=== PATIENT | male | born 1950 | race Caucasian/White ===

== ENCOUNTER → 2017-07-28 | Outpatient (CLI) | payer MEDICARE ==
--- NOTE | 2017-07-28 15:03 | CT ---
EXAMINATION TYPE: CT chest wo con DATE OF EXAM: 07/28/2017 COMPARISON: 04/18/2017, 11/13/2015 HISTORY: aortic aneurysm CT DLP: 680.7 mGycm. Automated Exposure Control for Dose Reduction was Utilized. TECHNIQUE: CT scan of the thorax is performed without IV contrast. FINDINGS: LUNGS: There is a stable appearing 9 mm pleural-based nodule right upper lobe. Retrospectively also measured 9 mm on the previous exam. There is a stable 4 mm nodule anterior segment right upper lobe. There is a stable appearing 3 mm nodule left upper lobe lingular segment . 3 mm posterior segment left lower lobe nodule not definitively seen on the previous exam. 2 mm nodule right lower lobe is stable. No pneumothorax or consolidative pneumonia or pleural effusion. Interlobular septal thickening noted suggestive of minimal interstitial chronic lung disease. MEDIASTINUM: Lack of IV contrast is noted to limit evaluation for mediastinal and especially for wilton r adenopathy. There are no definitive greater than 1 cm hilar or mediastinal lymph nodes. Ascsending aorta measures 4.7 cm and is stable. Pulmonary artery measures 3.5 cm. Trace amount of fluid in the pericardium again noted. Mild cardiomegaly noted and there is extensive coronary artery calcification. Atherosclerotic change involving the origin of the great vessels. OTHER: Previous cholecystectomy changes are noted. Vascular calcification seen. Stable appearing acc essory spleen anterior to the spleen. Hypertrophic and degenerative change of the spine. There is a s mall hiatal hernia. IMPRESSION: 1. Stable bilateral pulmonary nodules unchanged from the previous exam. Largest nodule seen within th e right upper lobe is retrospectively stable dating back to 11/13/2015. 2. Stable mild aneurysmal dilation of the ascending aorta measuring a maximal dimension of 4.7 cm on today's exam. 3. Extensive coronary artery calcification small hiatal hernia 4. Trace amount pericardial fluid.
== END | disposition home or self-care (01) ==
LOC: RADCTMAIN 13:52
PROVIDERS: ATTEND Internal Medicine
DX: I71.2 Thoracic aortic aneurysm, without rupture (principal); I31.3 Pericardial effusion (noninflammatory); R91.8 Other nonspecific abnormal finding of lung field; I25.10 Atherosclerotic heart disease of native coronary artery without angina pectoris; N18.3 Chronic kidney disease, stage 3 (moderate)
CPT/HCPCS: 71250

== ENCOUNTER 2017-07-30 07:19 | Emergency (ER) | payer MEDICARE ==
[2017-07-30] MEDS ORDERED: SODIUM CHLORIDE 0.9% 1,000 ML IV STA (07:44)
--- NOTE | 2017-07-30 08:04 | XR ---
EXAMINATION TYPE: XR chest 2V DATE OF EXAM: 07/30/2017 COMPARISON: CT 07/28/2017 HISTORY: 67-year-old male with chest pain TECHNIQUE: PA and lateral views FINDINGS: Heart upper limits of normal in size. Aorta and pulmonary vasculature within normal limits. Interstit ial prominence and mild peribronchial cuffing. Strandy atelectasis in the lower lungs. No consolidati on or pleural effusion. IMPRESSION: 1. Borderline heart size. 2. Interstitial prominence appears slightly increased relative to the patient's recent CT, possible b ronchitis, asthma, or atypical pneumonias 3. No focal infiltrate.
[2017-07-30 08:06] LABS: Basophils # (A) 0.1 k/uL (0-0.2); Basophils % (A) 1 %; Eosinophils # (A) 0.5 k/uL (0-0.7); Eosinophils % (A) 6 %; HCT 44.6 % (39.0-53.0); HGB 15.1 gm/dL (13.0-17.5); Lymphocytes # (A) 1.3 k/uL (1.0-4.8); Lymphocytes % (A) 17 %; MCH 29.9 pg (25.0-35.0); MCHC 33.8 g/dL (31.0-37.0); MCV 88.3 fL (80.0-100.0); Mean Platelet Volume 7.1; Monocytes # (A) 0.6 k/uL (0-1.0); Monocytes % (A) 7 %; Neutrophils # (A) 4.8 k/uL (1.3-7.7); Neutrophils % (A) 65 %; Platelet Count 285 k/uL (150-450); RBC 5.05 m/uL (4.30-5.90); WBC 7.4 k/uL (3.8-10.6)
[2017-07-30 08:10] LABS: INR 1.3 (<1.2); Partial Thromboplastin Time 35.4 sec (22.0-30.0); Prothrombin Time 12.1 sec (9.0-12.0)
[2017-07-30 08:19] LABS: Albumin 3.9 g/dL (3.5-5.0); Calcium 9.1 mg/dL (8.4-10.2); Magnesium 1.8 mg/dL (1.6-2.3); Potassium 4.1 mmol/L (3.5-5.1); Total Bilirubin 0.5 mg/dL (0.2-1.3); Total Protein 6.9 g/dL (6.3-8.2)
--- NOTE | 2017-07-30 08:20 | ED ---
General Adult HPI - General Chief complaint: Chest Pain Stated complaint: chest pain Time Seen by Provider: 07/30/17 07:30 Source: patient, RN notes reviewed, old records reviewed Mode of arrival: wheelchair Limitations: no limitations - History of Present Illness Initial comments: This is a 59-year-old male to the ER for evaluation regarding of S tightness. Patient has a long complex medical history with A. fib diabetes hypertension high cholesterol heart disease history of thoracic aneurysm, bilateral BKA. Patient states pain began when he awoke this morning early has he had a court case in [place]. Patient states he began to have chest tightness and twinging, no shortness of breath no diaphoresis no recent fevers. Patient does admit to cough and congestion with difficulty breathing. No travel history - Related Data Home Medications Medication Instructions Recorded Confirmed Cholecalciferol [Vitamin D3] 1,000 unit PO DAILY 01/24/14 07/30/17 Diltiazem Cd [Cardizem Cd] 180 mg PO BID 01/24/14 07/30/17 Furosemide [Lasix] 20 mg PO DAILY 01/24/14 07/30/17 Metoprolol Tartrate [Lopressor] 50 mg PO BID 01/24/14 07/30/17 Multivitamin [Men's Multi-Vitamin] 1 tab PO DAILY 01/24/14 07/30/17 Rivaroxaban [Xarelto] 15 mg PO DAILY 01/24/14 07/30/17 Simvastatin [Zocor] 40 mg PO HS 01/24/14 07/30/17 Tamsulosin [Flomax] 0.4 mg PO DAILY 01/24/14 07/30/17 Insulin Aspart Protam & Aspart 60 unit SQ AC-SUPPER 07/30/17 07/30/17 [NovoLOG MIX 70-30 Flexpen] Insulin Aspart Protam & Aspart 80 unit SQ AC-BID@0800,1200 07/30/17 07/30/17 [NovoLOG MIX 70-30 Flexpen] Irbesartan [Avapro] 300 mg PO DAILY 07/30/17 07/30/17 Phytonadione [Vitamin K] 5 mg PO DAILY 07/30/17 07/30/17 Triamterene/Hydrochlorothiazid 1 tab PO DAILY 07/30/17 07/30/17 [Triamterene-Hctz 37.5-25 mg Tb] metFORMIN HCL [Glucophage] 1,000 mg PO BID 07/30/17 07/30/17 Allergies Allergy/AdvReac Type Severity Reaction Status Date / Time No Known Allergies Allergy Verified 07/30/17 08:46 Review of Systems ROS Statement: Those systems with pertinent positive or pertinent negative responses have been documented in the HPI. ROS Other: All systems not noted in ROS Statement are negative. 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, thoracic aortic aneurysm History of Any Multi-Drug Resistant Organisms: MRSA Date of last positivie culture/infection: dec 2013 MDRO Source:: left leg bka site Past Surgical History: Cholecystectomy Additional Past Surgical History / Comment(s): bilateral bka Past Anesthesia/Blood Transfusion Reactions: No Reported Reaction Past Psychological History: No Psychological Hx Reported Smoking Status: Former smoker Past Alcohol Use History: None Reported Past Drug Use History: None Reported - Past Family History Mother Family Medical History: Cancer, Hypertension Additional Family Medical History / Comment(s): age 67 from uterine cancer Father Family Medical History: Cancer, Diabetes Mellitus, Hypertension Additional Family Medical History / Comment(s): of melonoma that metastisized age 74 General Exam Limitations: no limitations General appearance: alert, in no apparent distress Head exam: Present: atraumatic, normocephalic, normal inspection Eye exam: Present: normal appearance, PERRL, EOMI. Absent: scleral icterus, conjunctival injection, periorbital swelling ENT exam: Present: normal exam, mucous membranes moist Neck exam: Present: normal inspection. Absent: tenderness, meningismus, lymphadenopathy Respiratory exam: Present: normal lung sounds bilaterally. Absent: respiratory distress, wheezes, rales, rhonchi, stridor Cardiovascular Exam: Present: normal rhythm, irregular rhythm, normal heart sounds. Absent: systolic murmur, diastolic murmur, rubs, gallop, clicks GI/Abdominal exam: Present: soft, normal bowel sounds. Absent: distended, tenderness, guarding, rebound, rigid Extremities exam: Present: normal inspection, full ROM, normal capillary refill. Absent: tenderness, pedal edema, joint swelling, calf tenderness Back exam: Present: normal inspection Neurological exam: Present: alert, oriented X3, CN II-XII intact Psychiatric exam: Present: normal affect, normal mood Skin exam: Present: warm, dry, intact, normal color. Absent: rash Course Vital Signs 07/30/17 07/30/17 07:21 09:13 Temperature 97.2 F L Pulse Rate 82 69 Respiratory 20 18 Rate Blood Pressure 142/86 102/61 O2 Sat by Pulse 96 95 Oximetry - Reevaluation(s) Reevaluation #1: 07/30/17 08:18 Patient with recent aneurysm follow-up, CT showed no change Reevaluation #2: 07/30/17 09:[address] Green, Dr. Green recommends patient admission. Spoke with patient, patient refusing to stay in hospital. Patient will follow up as an outpatient EKG Findings - EKG Comments: EKG Findings:: EKG shows atrial fibrillation rate of 63, QRS 102, QTc 403 Medical Decision Making - Medical Decision Making 59 male the ER with nonspecific chest pain. Patient is usually is presenting 8 last night. Patient refusing to stay in hospital at this time. Patient will go home patient will follow-up with outpatient Dr. Green, come back and return if ER if symptoms return, patient has no chest pain at this time has not had chest pain story tired stay - Lab Data Result diagrams: 07/30/17 07:30 07/30/17 07:30 Lab Results 07/30/17 07/30/17 07/30/17 Range/Units 07:30 07:30 07:30 WBC 7.4 (3.8-10.6) k/uL RBC 5.05 (4.30-5.90) m/uL Hgb 15.1 (13.0-17.5) gm/dL Hct 44.6 (39.0-53.0) % MCV 88.3 (80.0-100.0) fL MCH 29.9 (25.0-35.0) pg MCHC 33.8 (31.0-37.0) g/dL RDW 15.0 (11.5-15.5) % Plt Count 285 (150-450) k/uL Neutrophils % 65 % Lymphocytes % 17 % Monocytes % 7 % Eosinophils % 6 % Basophils % 1 % Neutrophils # 4.8 (1.3-7.7) k/uL Lymphocytes # 1.3 (1.0-4.8) k/uL Monocytes # 0.6 (0-1.0) k/uL Eosinophils # 0.5 (0-0.7) k/uL Basophils # 0.1 (0-0.2) k/uL PT (9.0-12.0) sec INR (<1.2) APTT (22.0-30.0) sec Sodium 141 (137-145) mmol/L Potassium 4.1 (3.5-5.1) mmol/L Chloride 104 (98-107) mmol/L Carbon Dioxide 25 (22-30) mmol/L Anion Gap 12 mmol/L BUN 41 H (9-20) mg/dL Creatinine 1.87 H (0.66-1.25) mg/dL Est GFR (CKD-EPI)AfAm 42 (>60 ml/min/1.73 sqM) Est GFR (CKD-EPI)NonAf 36 (>60 ml/min/1.73 sqM) Glucose 116 H (74-99) mg/dL Calcium 9.1 (8.4-10.2) mg/dL Magnesium 1.8 (1.6-2.3) mg/dL Total Bilirubin 0.5 (0.2-1.3) mg/dL AST 18 (17-59) U/L ALT 35 (21-72) U/L Alkaline Phosphatase 87 (38-126) U/L Total Creatine Kinase 262 H (55-170) U/L CK-MB (CK-2) 3.5 H* (0.0-2.4) ng/mL CK-MB (CK-2) Rel Index 1.3 Troponin I <0.012 (0.000-0.034) ng/mL NT-Pro-B Natriuret Pep pg/mL Total Protein 6.9 (6.3-8.2) g/dL Albumin 3.9 (3.5-5.0) g/dL Lipase 88 (23-300) U/L 07/30/17 07/30/17 Range/Units 07:30 07:30 WBC (3.8-10.6) k/uL RBC (4.30-5.90) m/uL Hgb (13.0-17.5) gm/dL Hct (39.0-53.0) % MCV (80.0-100.0) fL MCH (25.0-35.0) pg MCHC (31.0-37.0) g/dL RDW (11.5-15.5) % Plt Count (150-450) k/uL Neutrophils % % Lymphocytes % % Monocytes % % Eosinophils % % Basophils % % Neutrophils # (1.3-7.7) k/uL Lymphocytes # (1.0-4.8) k/uL Monocytes # (0-1.0) k/uL Eosinophils # (0-0.7) k/uL Basophils # (0-0.2) k/uL PT 12.1 H (9.0-12.0) sec INR 1.3 H (<1.2) APTT 35.4 H (22.0-30.0) sec Sodium (137-145) mmol/L Potassium (3.5-5.1) mmol/L Chloride (98-107) mmol/L Carbon Dioxide (22-30) mmol/L Anion Gap mmol/L BUN (9-20) mg/dL Creatinine (0.66-1.25) mg/dL Est GFR (CKD-EPI)AfAm (>60 ml/min/1.73 sqM) Est GFR (CKD-EPI)NonAf (>60 ml/min/1.73 sqM) Glucose (74-99) mg/dL Calcium (8.4-10.2) mg/dL Magnesium (1.6-2.3) mg/dL Total Bilirubin (0.2-1.3) mg/dL AST (17-59) U/L ALT (21-72) U/L Alkaline Phosphatase (38-126) U/L Total Creatine Kinase (55-170) U/L CK-MB (CK-2) (0.0-2.4) ng/mL CK-MB (CK-2) Rel Index Troponin I (0.000-0.034) ng/mL NT-Pro-B Natriuret Pep 401 pg/mL Total Protein (6.3-8.2) g/dL Albumin (3.5-5.0) g/dL Lipase (23-300) U/L - Radiology Data Radiology results: report reviewed, image reviewed Disposition Clinical Impression: Chest pain Disposition: HOME SELF-CARE Condition: Good Instructions: Chest Pain (ED) Referrals: Raleigh Green MD [Primary Care Provider] - 1-2 days
[2017-07-30 08:23] LABS: Creatine Kinase 262 U/L (55-170)
[2017-07-30 08:36] LABS: Troponin I <0.012 ng/mL (0.000-0.034)
[2017-07-30 08:39] LABS: Creatine Kinase MB 3.5 ng/mL (0.0-2.4)
[2017-07-30 09:14] VITALS: RESP 18
[2017-07-30 09:48] VITALS: BP 111/65; PULSE 78; TEMP 98.7
== END 2017-07-30 09:48 | disposition home or self-care (01) ==
LOC: EC 07:19
DX: R07.9 Chest pain, unspecified (principal); R06.00 Dyspnea, unspecified; R05 Cough; I48.91 Unspecified atrial fibrillation; E11.9 Type 2 diabetes mellitus without complications; E78.5 Hyperlipidemia, unspecified; I10 Essential (primary) hypertension; Z86.14 Personal history of Methicillin resistant Staphylococcus aureus infection; Z87.891 Personal history of nicotine dependence; Z79.01 Long term (current) use of anticoagulants; Z79.4 Long term (current) use of insulin; Z79.899 Other long term (current) drug therapy
CPT/HCPCS: 36415; 71046; 80053; 82550; 82553; 83690; 83735; 83880; 84484; 85025; 85610; 85730; 93005; 99285

== ENCOUNTER → 2017-12-23 | Outpatient (CLI) | payer MEDICARE ==
--- NOTE | 2017-12-23 23:51 | CONS ---
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 The patient's primary care is Dr. Green. The patient is coming in to be re-evaluated for sleep apnea. He was diagnosed having sleep apnea more than 15 years ago. He was utilizing a BiPAP machine for many years which ultimately and the patient quit the treatment. He is concerned that he may have some residual sleep apnea. He has had some occasional snore. He is also complaining of some limited tiredness and fatigue and sleepiness. His Wales score is at 6. Anatomically, he is obese. He claims to have lost around 20 pounds; however his BMI is still at 49.3 and there is still a concern of obstructive sleep apnea. He is complaining of nocturia. He has no problems with memory and concentration, is fully alert and awake during the day. He goes to bed between 11:00 p.m. and 1:00 a.m. and he goes and wakes up around 10:00 a.m. in the morning. PAST MEDICAL HISTORY: 1. Obstructive sleep apnea. 2. Diabetes. 3. Hypertension. 4. Coronary artery disease. 5. Chronic atrial fibrillation. 6. BPH. 7. Hyperlipidemia. 8. Peripheral vascular disease with bilateral below-knee amputation. SURGICAL HISTORY: Below-knee amputation bilateral and cholecystectomy. DRUG ALLERGIES: Not known. OUTPATIENT MEDICATION LIST: Includes: 1. Lasix. 2. Zocor. 3. Victoza. 4. Xarelto. 5. Lopressor. 6. Flomax. 7. Cardizem. 8. Centrum. 9. Irbesartan. 10.Vitamin D. 11.Glucophage. 12.Vitamin K. 13.Maxzide. SOCIAL HISTORY: The patient is a nonsmoker. No history of alcoholism. No history of IV drugs. He is a retired prosecutor. FAMILY HISTORY: Negative for sleep apnea. REVIEW OF SYSTEMS: A 12-point review of system was done. He has difficulty with mobility due to amputation of lower extremities bilaterally. He walks around with the help of prostheses. No insomnia. He reports improvement in sleep quality after purchasing a new mattress. Denies waking up choking. Denies waking up gasping for air. No grinding of the teeth. No dry mouth. No anxiety or panic attacks. No palpitation. No heartburn. No claustrophobia or anxiety. No sexual dysfunction or depression. BP is 150/96, pulse 107, respirations 18, temperature 98.6 weight is 334. Height is 5 feet 9 inches. Neck is 20 inches. Wales Score is at 6. BMI is 49.3, BP is 150/96, saturation 97% on room air. GENERAL APPEARANCE: Calm, comfortable. Head is atraumatic, normocephalic. Neck is short, supple. Crowding of posterior pharynx is present. There is no goiter or neck mass. LUNGS: Diminished breath sounds. Otherwise clear. HEART: Sounds are irregular rhythm. Normal S1, S2. ABDOMEN: Soft, nontender. No organomegaly. EXTREMITIES: The patient patient has prosthesis bilaterally, as the patient has below- knee amputation. NEUROLOGIC: A and O x3. No focal neurological deficits. PSYCHIATRIC: Negative for anxiety or depression. IMPRESSION: 1. Obstructive sleep apnea per history. The patient is coming in for re-evaluation. He does have some ongoing symptoms to suggest obstructive sleep apnea, yet he will need evaluation to assess the presence and severity and the need of CPAP therapy or of BiPAP therapy will be made accordingly. 2. Obesity, BMI 49.3. 3. Limited fatigue/sleepiness. Wales Score is 6. 4. Diabetes. 5. Hypertension. 6. Coronary artery disease. 7. Chronic atrial fibrillation. 8. Benign prostatic hypertrophy. 9. Hyperlipidemia. 10.Peripheral vascular disease with below-knee amputation bilaterally. PLAN: Set up this patient for a screening polysomnogram to assess the presence and severity of sleep apnea. Based on the results, will discuss the need for treatment. Fortunately, the patient is not excessively symptomatic, yet based on his cardiovascular history, we may consider restarting CPAP/BiPAP treatment, especially if he demonstrates to have significant amount of disease. MMODL / IJN: [id number] /
== END | disposition home or self-care (01) ==
LOC: SLEEP 16:44
PROVIDERS: ATTEND Internal Medicine Critical Care Medicine
DX: R06.83 Snoring (principal); R35.1 Nocturia; R53.83 Other fatigue; E66.9 Obesity, unspecified; I10 Essential (primary) hypertension; I25.10 Atherosclerotic heart disease of native coronary artery without angina pectoris; I48.2 Chronic atrial fibrillation; N40.0 Benign prostatic hyperplasia without lower urinary tract symptoms; E78.5 Hyperlipidemia, unspecified; I73.9 Peripheral vascular disease, unspecified; Z89.511 Acquired absence of right leg below knee; Z89.512 Acquired absence of left leg below knee; Z68.42 Body mass index [BMI] 45.0-49.9, adult; Z90.49 Acquired absence of other specified parts of digestive tract; Z79.84 Long term (current) use of oral hypoglycemic drugs; Z79.899 Other long term (current) drug therapy
CPT/HCPCS: 99211

== ENCOUNTER → 2018-04-14 | Outpatient (CLI) | payer MEDICARE ==
--- NOTE | 2018-04-14 19:26 | SFUN ---
SLEEP CENTER FOLLOW UP NOTE 68-year-old male patient with severe WEN coming in for a compliancy check. The patient was found to have an AHI of 75.4, consistent with severe WEN. He is currently on CPAP pressure of 17 cm of water. He is also on a C-flex of 3. He is doing well. He is trying to lose weight. He has lost around 11 pounds. He has been averaging around 8.5 hours of CPAP use per night. He has excellent mask seal. AHI is down to 1.2. He is using a Mirage FX nose mask. No complaints whatsoever. Treatment was successful. The patient benefited from treatment. Sleep quality is improved and is feeling much more refreshed and alert during the day. His Tokio score is down to 5. His current vitals, his weight is down to 323. BP is 140/86, pulse 81, respirations 20, Tokio score is 5. Saturation 94% on room air. GENERAL APPEARANCE: Calm, comfortable. Obese. Head is atraumatic, normocephalic. NECK: Short, supple. Crowding of posterior pharynx. There is no goiter or neck masses. LUNGS: Clear to auscultation. Heart sounds are regular. Normal S1, S2. No S3. No murmurs. Abdomen is soft, nontender. No organomegaly. EXTREMITIES: No edema. No cyanosis or clubbing. NEUROLOGIC: Alert and oriented x3. No focal neurological deficits. PSYCHIATRIC: Negative for anxiety or depression. REVIEW OF SYSTEMS: 12-point review of system was done. Negative other than things mentioned above history of present illness. IMPRESSION: 1. Severe obstructive sleep apnea with AHI of 75.4, currently on CPAP pressure of 17. 2. Hypersomnia, improved. 3. Sleep fragmentation, improved. 4. Obesity with interval weight loss. Current weight is down to 323. 5. Chronic atrial fibrillation. 6. Coronary artery disease. 7. Hyperlipidemia. 8. Peripheral vascular disease. 9. Diabetes. 10.Hypertension. 11.Benign prostatic hypertrophy. PLAN: Treatment is successful. Continue the same CPAP pressure setting. The patient has a [employer] RespirMyandbs CPAP unit, uses the Mirage FX nose mask. Encourage further weight loss. See me back in a year's time or earlier if needed. Treatment is successful for now. MMODL / IJN: [id number] /
== END | disposition home or self-care (01) ==
LOC: SLEEP 13:10
PROVIDERS: ATTEND Internal Medicine Critical Care Medicine
DX: G47.33 Obstructive sleep apnea (adult) (pediatric) (principal); E66.9 Obesity, unspecified; I48.2 Chronic atrial fibrillation; I25.10 Atherosclerotic heart disease of native coronary artery without angina pectoris; E78.5 Hyperlipidemia, unspecified; I73.9 Peripheral vascular disease, unspecified; E11.9 Type 2 diabetes mellitus without complications; I10 Essential (primary) hypertension; N40.0 Benign prostatic hyperplasia without lower urinary tract symptoms; Z99.89 Dependence on other enabling machines and devices

== ENCOUNTER → 2019-03-23 | Outpatient (CLI) | payer MEDICARE ==
--- NOTE | 2019-03-23 19:45 | PN ---
PROGRESS NOTE This is a 68-year-old male patient coming in for an annual check regarding obstructive sleep apnea. The patient has severe disease with an AHI of 75.4, and the patient is on CPAP pressure of 17. Since his last evaluation, the patient has gained around 6 pounds. The patient is doing well. He is using a Mirage FX standard mask. His body weight has been relatively stable. He has been averaging around 10.4 hours of CPAP use per night. He is using the DreamStation with 100% mask fit and his AHI is down to 1.8. He has no specific complaints otherwise for now. REVIEW OF SYSTEMS: Fourteen-point review of systems was done. Positive findings were all mentioned above in the history of present illness. PHYSICAL EXAMINATION: VITAL SIGNS: BP is 128/81, pulse 101, respiration 18, temperature 98.4, saturation 95% on room air. GENERAL APPEARANCE: Calm, comfortable. HEAD: Atraumatic, normocephalic. NECK: Supple. There is no JVD. No goiter or neck masses. LUNGS: Clear to auscultation. HEART: Heart sounds are regular rate and rhythm. Normal S1, S2. No S3, S4. No murmurs. ABDOMEN: Soft, nontender. No organomegaly. EXTREMITIES: No edema. No cyanosis or clubbing. NEUROLOGICAL: The patient is alert and oriented x3. No focal neurological deficits. PSYCHIATRIC: Negative for anxiety or depression. IMPRESSION: 1. Severe obstructive sleep apnea with an apnea/hypopnea index of 75.4, currently on CPAP at a pressure of 17. 2. Hypersomnia, improved. 3. Peripheral vascular disease with bilateral lower extremity amputation. 4. Benign prostatic hypertrophy. 5. Hypertension. 6. Diabetes mellitus. 7. Hyperlipidemia. 8. Coronary artery disease. 9. History of atrial fibrillation. Current rhythm is sinus. 10.Obesity. PLAN: 1. Continue CPAP therapy at the same level of pressure. 2. Encourage weight loss. 3. Renew the CPAP supplies. 4. The patient currently is in sinus rhythm. 5. Will continue to follow. Hemodynamically stable. No other significant cardiovascular events over the past 12 months. MMODL / IJN: [id number] /
== END | disposition home or self-care (01) ==
LOC: SLEEP 13:29
PROVIDERS: ATTEND Internal Medicine Critical Care Medicine
DX: G47.33 Obstructive sleep apnea (adult) (pediatric) (principal); I73.9 Peripheral vascular disease, unspecified; E66.9 Obesity, unspecified; N40.0 Benign prostatic hyperplasia without lower urinary tract symptoms; I10 Essential (primary) hypertension; E11.9 Type 2 diabetes mellitus without complications; E78.5 Hyperlipidemia, unspecified; I25.10 Atherosclerotic heart disease of native coronary artery without angina pectoris; Z86.79 Personal history of other diseases of the circulatory system; Z89.612 Acquired absence of left leg above knee; Z89.611 Acquired absence of right leg above knee